=== PATIENT | female | born 1930 | race Caucasian/White ===

== ENCOUNTER 2017-05-08 21:01 | Emergency (ER) | payer MEDICARE ==
[2017-05-08 21:21] VITALS: RESP 18
[2017-05-08 21:52] LABS: Basophils % (A) 0 %; Eosinophils # (A) 0.1 k/uL (0-0.7); Eosinophils % (A) 1 %; HCT 40.6 % (34.0-46.0); HGB 13.6 gm/dL (11.4-16.0); Lymphocytes % (A) 18 %; MCH 28.7 pg (25.0-35.0); MCHC 33.6 g/dL (31.0-37.0); MCV 85.3 fL (80.0-100.0); Mean Platelet Volume 7.6; Monocytes # (A) 0.4 k/uL (0-1.0); Monocytes % (A) 7 %; Neutrophils # (A) 4.1 k/uL (1.3-7.7); Neutrophils % (A) 73 %; Platelet Count 170 k/uL (150-450); RBC 4.76 m/uL (3.80-5.40); RDW 12.3 % (11.5-15.5); WBC 5.7 k/uL (3.8-10.6)
--- NOTE | 2017-05-08 21:59 | XR ---
EXAMINATION TYPE: XR chest 2V DATE OF EXAM: 05/08/2017 COMPARISON: 12/13/2015 HISTORY: Cough TECHNIQUE: Frontal and lateral views of the chest are obtained. FINDINGS: There is no heart failure nor confluent pneumonic infiltrate. Thoracic aorta is atheromato us. There are chest leads. Costophrenic angles are clear. The bony thorax is intact. IMPRESSION: No active cardiopulmonary disease. Atheromatous aorta. No change.
[2017-05-08 22:02] LABS: INR 1.1 (<1.2); Prothrombin Time 10.8 sec (9.0-12.0)
[2017-05-08 22:24] LABS: ALT 41 U/L (9-52); AST 54 U/L (14-36); Alkaline Phosphatase 72 U/L (38-126); Anion Gap 10 mmol/L; Blood Urea Nitrogen 17 mg/dL (7-17); Calcium 9.1 mg/dL (8.4-10.2); Carbon Dioxide 24 mmol/L (22-30); Chloride 104 mmol/L (98-107); Glucose 127 mg/dL (74-99); Potassium 3.9 mmol/L (3.5-5.1); Sodium 138 mmol/L (137-145); Total Bilirubin 0.8 mg/dL (0.2-1.3); Total Protein 6.6 g/dL (6.3-8.2)
[2017-05-08] MEDS ORDERED: LORazepam 2 MG/ML INJ IV STA (22:36)
[2017-05-08] MEDS ORDERED: ONDANSETRON 4 MG/2 ML VIAL IVP STA (22:36)
[2017-05-08 22:59] LABS: Creatine Kinase 55 U/L (30-135)
[2017-05-08 23:12] LABS: Creatine Kinase MB 0.5 ng/mL (0.0-2.4); Troponin I <0.012 ng/mL (0.000-0.034)
--- NOTE | 2017-05-08 23:14 | ED ---
General Adult HPI - General Chief complaint: Chest Pain Stated complaint: Weakness/Tremors Time Seen by Provider: 05/08/17 21:12 Source: patient, RN notes reviewed, old records reviewed Mode of arrival: EMS Limitations: no limitations - History of Present Illness Initial comments: 89-year-old female to the ER with multiple nonspecific complaints. Patient complaints of lightheadedness and dizziness and mild trembling. She has multiple medical issues including cardiac disease. Also source of high blood pressure high cholesterol. Patient having mild chest pain. Patient states she was doing nothing abnormal watching TV with no symptoms or complaints. Blood pressure began to fluctuate a little bit, she felt dizzy and had some tingling in her arms. At this time states some tingling in her right arm, some nausea, denies chest pain or any pain in general. Recent fever cough or congestion, patient states she's been feeling well as of late - Related Data Home Medications Medication Instructions Recorded Confirmed ALPRAZolam [Xanax] 0.5 mg PO HS PRN 03/04/15 05/08/17 Aspirin 162 mg PO HS 03/04/15 05/08/17 Hydrocodone/Acetaminophen [Lortab 1 tab PO Q6HR PRN 03/04/15 05/08/17 7.5-325 mg Tablet] Isosorbide Mononitrate ER [Imdur] 30 mg PO BID 03/04/15 05/08/17 Metoprolol Tartrate [Lopressor] 50 mg PO BID 03/04/15 05/08/17 Omeprazole [PriLOSEC] 20 mg PO AC-BRKFST 03/04/15 05/08/17 Rosuvastatin Calcium [Crestor] 5 mg PO QAM 03/04/15 05/08/17 amLODIPine [Norvasc] 5 mg PO BID 03/04/15 05/08/17 Cholecalciferol [Vitamin D3] 2,000 unit PO HS 11/09/15 05/08/17 Levothyroxine Sodium [Synthroid] 137 mcg PO MOTUWETHFRSA 12/13/15 05/08/17 Valsartan [Diovan] 160 mg PO BID 12/13/15 05/08/17 FLUoxetine HCL [PROzac] 10 mg PO DAILY 05/08/17 05/08/17 Allergies Allergy/AdvReac Type Severity Reaction Status Date / Time dog dander Allergy Unknown Verified 05/08/17 21:28 Penicillins Allergy Unknown Verified 05/08/17 21:28 Review of Systems ROS Statement: Those systems with pertinent positive or pertinent negative responses have been documented in the HPI. ROS Other: All systems not noted in ROS Statement are negative. Past Medical History Past Medical History: Coronary Artery Disease (CAD), GERD/Reflux, Hyperlipidemia , Hypertension, Myocardial Infarction (OK), Osteoarthritis (OA), Thyroid Disorder Additional Past Medical History / Comment(s): glaucoma, hernia, hypercholetremia , diverticulousis, back pain, CAD status post PCI, hypertension and hypertensive cardiovascular disease, osteoarthritis, recurrent TIA. Last Myocardial Infarction Date:: History of Any Multi-Drug Resistant Organisms: None Reported Past Surgical History: Back Surgery, Bladder Surgery, Hysterectomy, Orthopedic Surgery Additional Past Surgical History / Comment(s): Left heart catheterization with PCI 3, bilateral cataract surgery, right glaucoma surgery, bladder suspension 2, initial partial hysterectomy, followed by oophorectomy with salpingectomy, then the rest of salpingectomy and oophorectomy, colonoscopy 5 years ago showed diverticulosis, Past Anesthesia/Blood Transfusion Reactions: No Reported Reaction Past Psychological History: Anxiety Smoking Status: Never smoker Past Alcohol Use History: None Reported Past Drug Use History: None Reported - Past Family History Father Family Medical History: No Reported History (Father at age of 71 from alcohol was in) Mother Family Medical History: Vascular Disorder (Mother at age of 84 from old age after she had suffered from competition after carotid endarterectomy.) Son(s) Family Medical History: No Reported History (Patient has one son no major medical problems) General Exam Limitations: no limitations General appearance: alert, in no apparent distress Head exam: Present: atraumatic, normocephalic, normal inspection Eye exam: Present: normal appearance, PERRL, EOMI. Absent: scleral icterus, conjunctival injection, periorbital swelling ENT exam: Present: normal exam, mucous membranes moist Neck exam: Present: normal inspection. Absent: tenderness, meningismus, lymphadenopathy Respiratory exam: Present: normal lung sounds bilaterally. Absent: respiratory distress, wheezes, rales, rhonchi, stridor Cardiovascular Exam: Present: regular rate, normal rhythm, normal heart sounds. Absent: systolic murmur, diastolic murmur, rubs, gallop, clicks GI/Abdominal exam: Present: soft, normal bowel sounds. Absent: distended, tenderness, guarding, rebound, rigid Extremities exam: Present: normal inspection, full ROM, normal capillary refill. Absent: tenderness, pedal edema, joint swelling, calf tenderness Back exam: Present: normal inspection Neurological exam: Present: alert, oriented X3, CN II-XII intact Psychiatric exam: Present: normal affect, normal mood Skin exam: Present: warm, dry, intact, normal color. Absent: rash Course Vital Signs 05/08/17 05/08/17 21:16 22:49 Temperature 98.5 F Pulse Rate 64 80 Respiratory 18 18 Rate Blood Pressure 157/73 129/66 O2 Sat by Pulse 97 95 Oximetry - Reevaluation(s) Reevaluation #1: 05/08/17 23:14 Medical records reviewed Reevaluation #2: 05/08/17 23:14 Patient's nausea is improved Reevaluation #3: 05/09/17 00:11 Patient still denies any complaints like to be discharged home EKG Findings - EKG Comments: EKG Findings:: EKG shows normal sinus rhythm rate of 63, DE 140, QRS 92, QTc 411 Medical Decision Making - Medical Decision Making 86 female the ER nonspecific symptoms, patient feeling better, history of similar ER visits for same. No chest pain feeling good and would like to be discharged home - Lab Data Result diagrams: 05/08/17 21:15 05/08/17 21:15 Lab Results 05/08/17 05/08/17 05/08/17 Range/Units 21:15 21:15 21:15 WBC 5.7 (3.8-10.6) k/uL RBC 4.76 (3.80-5.40) m/uL Hgb 13.6 (11.4-16.0) gm/dL Hct 40.6 (34.0-46.0) % MCV 85.3 (80.0-100.0) fL MCH 28.7 (25.0-35.0) pg MCHC 33.6 (31.0-37.0) g/dL RDW 12.3 (11.5-15.5) % Plt Count 170 (150-450) k/uL Neutrophils % 73 % Lymphocytes % 18 % Monocytes % 7 % Eosinophils % 1 % Basophils % 0 % Neutrophils # 4.1 (1.3-7.7) k/uL Lymphocytes # 1.0 (1.0-4.8) k/uL Monocytes # 0.4 (0-1.0) k/uL Eosinophils # 0.1 (0-0.7) k/uL Basophils # 0.0 (0-0.2) k/uL PT (9.0-12.0) sec INR (<1.2) APTT (22.0-30.0) sec Sodium 138 (137-145) mmol/L Potassium 3.9 (3.5-5.1) mmol/L Chloride 104 (98-107) mmol/L Carbon Dioxide 24 (22-30) mmol/L Anion Gap 10 mmol/L BUN 17 (7-17) mg/dL Creatinine 0.60 (0.52-1.04) mg/dL Est GFR (CKD-EPI)AfAm >90 (>60 ml/min/1.73 sqM) Est GFR (CKD-EPI)NonAf 82 (>60 ml/min/1.73 sqM) Glucose 127 H (74-99) mg/dL Calcium 9.1 (8.4-10.2) mg/dL Magnesium 2.0 (1.6-2.3) mg/dL Total Bilirubin 0.8 (0.2-1.3) mg/dL AST 54 H (14-36) U/L ALT 41 (9-52) U/L Alkaline Phosphatase 72 (38-126) U/L Total Creatine Kinase 55 (30-135) U/L CK-MB (CK-2) 0.5 (0.0-2.4) ng/mL CK-MB (CK-2) Rel Index 0.9 Troponin I <0.012 (0.000-0.034) ng/mL Total Protein 6.6 (6.3-8.2) g/dL Albumin 4.0 (3.5-5.0) g/dL 05/08/17 Range/Units 21:15 WBC (3.8-10.6) k/uL RBC (3.80-5.40) m/uL Hgb (11.4-16.0) gm/dL Hct (34.0-46.0) % MCV (80.0-100.0) fL MCH (25.0-35.0) pg MCHC (31.0-37.0) g/dL RDW (11.5-15.5) % Plt Count (150-450) k/uL Neutrophils % % Lymphocytes % % Monocytes % % Eosinophils % % Basophils % % Neutrophils # (1.3-7.7) k/uL Lymphocytes # (1.0-4.8) k/uL Monocytes # (0-1.0) k/uL Eosinophils # (0-0.7) k/uL Basophils # (0-0.2) k/uL PT 10.8 (9.0-12.0) sec INR 1.1 (<1.2) APTT 22.0 (22.0-30.0) sec Sodium (137-145) mmol/L Potassium (3.5-5.1) mmol/L Chloride (98-107) mmol/L Carbon Dioxide (22-30) mmol/L Anion Gap mmol/L BUN (7-17) mg/dL Creatinine (0.52-1.04) mg/dL Est GFR (CKD-EPI)AfAm (>60 ml/min/1.73 sqM) Est GFR (CKD-EPI)NonAf (>60 ml/min/1.73 sqM) Glucose (74-99) mg/dL Calcium (8.4-10.2) mg/dL Magnesium (1.6-2.3) mg/dL Total Bilirubin (0.2-1.3) mg/dL AST (14-36) U/L ALT (9-52) U/L Alkaline Phosphatase (38-126) U/L Total Creatine Kinase (30-135) U/L CK-MB (CK-2) (0.0-2.4) ng/mL CK-MB (CK-2) Rel Index Troponin I (0.000-0.034) ng/mL Total Protein (6.3-8.2) g/dL Albumin (3.5-5.0) g/dL - Radiology Data Radiology results: report reviewed (Chest x-rays negative for acute disease), image reviewed Disposition Clinical Impression: Chest pain, Anxiety, Hypertension Disposition: HOME SELF-CARE Condition: Good Instructions: Chest Pain (ED), Hypertension (ED) Referrals: Hanna Bajwa MD [Primary Care Provider] - 1-2 days
[2017-05-09 00:22] VITALS: BP 108/76; PULSE 72; TEMP 98.3
== END 2017-05-09 00:24 | disposition home or self-care (01) ==
LOC: EC 21:01
DX: F41.9 Anxiety disorder, unspecified (principal); R07.9 Chest pain, unspecified; I11.9 Hypertensive heart disease without heart failure; R11.0 Nausea; E78.5 Hyperlipidemia, unspecified; I25.10 Atherosclerotic heart disease of native coronary artery without angina pectoris; K21.9 Gastro-esophageal reflux disease without esophagitis; I25.2 Old myocardial infarction; E78.00 Pure hypercholesterolemia, unspecified; E07.9 Disorder of thyroid, unspecified; Z86.73 Personal history of transient ischemic attack (TIA), and cerebral infarction without residual deficits; Z79.82 Long term (current) use of aspirin; Z79.899 Other long term (current) drug therapy; Z91.048 Other nonmedicinal substance allergy status; Z88.0 Allergy status to penicillin
CPT/HCPCS: 36415; 93005; 80053; 82550; 82553; 83735; 84484; 85025; 85610; 85730; 71046; 99285; 96374; 96375; J2060; J2405

== ENCOUNTER → 2017-07-17 | Outpatient (CLI) | payer MEDICARE ==
--- NOTE | 2017-07-20 08:39 | USB ---
Reason for exam: clinical finding. History: Patient is postmenopausal. Physical Findings: Nurse did not find any significant physical abnormalities on exam. US Breast LT Left complete breast ultrasound includes all four quadrants, the retroareolar region and axilla. Finding demonstrates no cystic or solid lesion seen. These results were verbally communicated with the patient and result sheet given to the patient on 07/17/17. ASSESSMENT: Incomplete: need additional imaging evaluation, BI-RAD 0 RECOMMENDATION: Special view mammogram of the left breast. (spot MLO and lateral)
--- NOTE | 2017-07-20 08:41 | MM ---
Reason for exam: additional evaluation requested from abnormal screening. Last mammogram was performed 17 years and 2 months ago. History: Patient is postmenopausal. Physical Findings: Nurse did not find any significant physical abnormalities on exam. MG Work Up Mamm w CAD LT LM and spot compression MLO view(s) were taken of the left breast. Prior study comparison: June 26, 2017, mammogram, performed at [facility]. August 08, 2008, mammogram, performed at [facility]. The breast tissue is heterogeneously dense. This may lower the sensitivity of mammography. No suspicious abnormality. Inferior retroareolar asymmetry is present on the exam on 2008. These results were verbally communicated with the patient and result sheet given to the patient on 07/17/17. ASSESSMENT: Benign, BI-RAD 2 RECOMMENDATION: Routine screening mammogram of both breasts in 1 year.
== END | disposition home or self-care (01) ==
LOC: RADUSWWP 14:03
PROVIDERS: ATTEND Internal Medicine
DX: R92.2 Inconclusive mammogram (principal)
CPT/HCPCS: 77065

== ENCOUNTER → 2018-01-26 | Outpatient (CLI) | payer MEDICARE ==
--- NOTE | 2018-01-26 16:19 | US ---
EXAMINATION TYPE: US carotid duplex BILAT DATE OF EXAM: 01/26/2018 COMPARISON: MRA head/ MRI brain, US CLINICAL HISTORY: I65.23 stenosis/occlusion carotid. TIA EXAM MEASUREMENTS: RIGHT: Peak Systolic Velocity (PSV) cm/sec ----- Right CCA: 57.9 ----- Right ICA: 62.3 ----- Right ECA: 188.3 prox ICA/CCA ratio: 1.1 RIGHT: End Diastole cm/sec ----- Right CCA: 13.9 ----- Right ICA: 17.2 ----- Right ECA: 13.1 LEFT: Peak Systolic Velocity (PSV) cm/sec ----- Left CCA: 49.1 ----- Left ICA: 45.9 ----- Left ECA: 156.2 mid ICA/CCA ratio: 0.9 LEFT: End Diastole cm/sec ----- Left CCA: 10.1 ----- Left ICA: 15.4 ----- Left ECA: 10.7 VERTEBRALS (direction of flow): Right Vertebral: no color flow seen in neck area for PW Doppler placement Left Vertebral: Antegrade and enlarged vertebral artery with color flow well seen Rhythm: Normal Moderate, irregular and calcified wall plaque is seen in bilateral carotid bifurcation with abnormall y elevated PSV in bilateral ECA at and distal to noted wall plaque. Dominant left vertebral artery is also noted. IMPRESSION: 1. 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 2. Significant flow-limiting stenosis within the internal carotid arteries is not identified. 3. There is some mild intimal common carotid vessels. 4. Nonvisualization right vertebral artery Criteria for Assigning % of Stenosis / Diameter reduction (Estimation based on the indirect measurements of the internal carotid artery velocities (ICA PSV). 1. Normal (no stenosis)=ICA PSV < 125 cm/s: ratio < 2.0: ICA EDV<40 cm/s. 2. Less than 50% stenosis=ICA PSV < 125 cm/s: ratio < 2.0: ICA EDV<40 cm/s. 3. 50 to 69% stenosis=ICA PSV of 125 to 230 cm/s: ration 2.0 ? 4.0: ICA EDV 40-100 cm/s. 4. Greater than 70% stenosis to near occlusion= ICA PSV > 230 cm/s: ratio > 4.0: ICA EDV > 100 cm/s. 5. Near occlusion= ICA PSV velocities may be low or undetectable: variable ratio and ICA EDV. 6. Total occlusion=unable to detect flow.
--- NOTE | 2018-01-27 07:30 | ECHOF ---
Referral Reason:Atherosclerotic heart disease MEASUREMENTS -------- HEIGHT: 162.6 cm WEIGHT: 86.6 kg BP: 126/69 RVIDd: 3.3 cm (< 3.3) IVSd: 1.2 cm (0.6 - 1.1) LVIDd: 4.3 cm (3.9 - 5.3) LVPWd: 1.2 cm (0.6 - 1.1) IVSs: 1.6 cm LVIDs: 3.2 cm LVPWs: 1.4 cm LA Diam: 3.5 cm (2.7 - 3.8) LAESV Index (A-L): 35.47 ml/m Ao Diam: 3.3 cm (2.0 - 3.7) AV Cusp: 2.2 cm (1.5 - 2.6) MV EXCURSION: 19.089 mm (> 18.000) MV EF SLOPE: 36 mm/s (70 - 150) EPSS: 1.0 cm MV E Thomas: 0.91 m/s MV DecT: 245 ms MV A Thomas: 0.83 m/s MV E/A Ratio: 1.10 AR PHT: 955 ms RAP: 5.00 mmHg RVSP: 33.70 mmHg FINDINGS -------- Sinus rhythm. This was a technically adequate study. The left ventricular size is normal. There is borderline concentric left ventricular hypertrophy. Overall left ventricular systolic function is normal with, an EF between 55 - 60 %. The right ventricle is mildly enlarged. LA is moderately dilated 34-39 ml/m2 The right atrium is normal in size. There is mild aortic valve sclerosis. There is mild aortic regurgitation. The mitral valve is normal. Mild mitral regurgitation is present. Mild tricuspid regurgitation present. Right ventricular systolic pressure is normal at < 35 mmHg. Trace/mild (physiologic) pulmonic regurgitation. The aortic root size is normal. Normal inferior vena cava with normal inspiratory collapse consistent with estimated right atrial pre ssure of 5 mmHg. There is no pericardial effusion. CONCLUSIONS -------- 1. Sinus rhythm. 2. This was a technically adequate study. 3. The left ventricular size is normal. 4. There is borderline concentric left ventricular hypertrophy. 5. Overall left ventricular systolic function is normal with, an EF between 55 - 60 %. 6. The right ventricle is mildly enlarged. 7. LA is moderately dilated 34-39 ml/m2 8. There is mild aortic valve sclerosis. 9. There is mild aortic regurgitation. 10. Mild mitral regurgitation is present. 11. Mild tricuspid regurgitation present. 12. Right ventricular systolic pressure is normal at < 35 mmHg. 13. Trace/mild (physiologic) pulmonic regurgitation. 14. The aortic root size is normal. 15. Normal inferior vena cava with normal inspiratory collapse consistent with estimated right atrial pressure of 5 mmHg. 16. There is no pericardial effusion. NEWS LIBRARY DIRECTOR: Justine Bryant RDCS
== END ==
LOC: RADUSMAIN 14:44
PROVIDERS: ATTEND Internal Medicine
DX: I65.23 Occlusion and stenosis of bilateral carotid arteries (principal)
CPT/HCPCS: 93306; 93880

== ENCOUNTER → 2019-02-15 | Outpatient (CLI) | payer MEDICARE ==
--- NOTE | 2019-02-16 12:02 | ECHOF ---
Referral Reason:I25.10 Atherosclerotic heart disease of [place] MEASUREMENTS -------- HEIGHT: 165.1 cm WEIGHT: 88.9 kg BP: RVIDd: 3.5 cm (< 3.3) IVSd: 1.1 cm (0.6 - 1.1) LVIDd: 4.5 cm (3.9 - 5.3) LVPWd: 1.1 cm (0.6 - 1.1) IVSs: 1.6 cm LVIDs: 3.1 cm LVPWs: 1.4 cm LA Diam: 4.1 cm (2.7 - 3.8) LAESV Index (A-L): 27.65 ml/m Ao Diam: 2.9 cm (2.0 - 3.7) AV Cusp: 1.4 cm (1.5 - 2.6) LA Diam: 3.6 cm (2.7 - 3.8) MV EXCURSION: 16.659 mm (> 18.000) MV EF SLOPE: 71 mm/s (70 - 150) EPSS: 0.6 cm MV E Thomas: 0.57 m/s MV DecT: 192 ms MV A Thomas: 0.36 m/s MV E/A Ratio: 1.57 RAP: 5.00 mmHg RVSP: 25.10 mmHg FINDINGS -------- Sinus rhythm. This was a technically good study. LV size, wall thickness and systolic function are normal, with an EF greater than 55%. The left lakhwinder tricular size is normal. Overall left ventricular systolic function is mildly impaired with, an EF between 45 - 50 %. The right ventricle is normal in size. The left atrial size is normal. The right atrial size is normal. There is mild aortic valve sclerosis. There is no evidence of aortic regurgitation. Mild mitral annular calcification present. Mild mitral regurgitation is present. Mild tricuspid regurgitation present. Right ventricular systolic pressure is normal at < 35 mmHg. There is no evidence of pulmonary hypertension. There is no pulmonic regurgitation present. The aortic root size is normal. There is no pericardial effusion. CONCLUSIONS -------- 1. Sinus rhythm. 2. This was a technically good study. 3. LV size, wall thickness and systolic function are normal, with an EF greater than 55%. 4. The left ventricular size is normal. 5. Overall left ventricular systolic function is mildly impaired with, an EF between 45 - 50 %. 6. The right ventricle is normal in size. 7. The left atrial size is normal. 8. The right atrial size is normal. 9. There is mild aortic valve sclerosis. 10. Mild mitral annular calcification present. 11. Mild mitral regurgitation is present. 12. Mild tricuspid regurgitation present. 13. Right ventricular systolic pressure is normal at < 35 mmHg. 14. There is no evidence of pulmonary hypertension. 15. There is no pulmonic regurgitation present. 16. The aortic root size is normal. 17. There is no pericardial effusion. SLEEVE TURNER: Jessie Arzate RDCS
== END | disposition home or self-care (01) ==
LOC: RADECHMAIN 13:07
PROVIDERS: ATTEND Internal Medicine
DX: I08.1 Rheumatic disorders of both mitral and tricuspid valves (principal)
CPT/HCPCS: 93306

== ENCOUNTER → 2019-02-25 | Outpatient (CLI) | payer MEDICARE ==
[~2019-02-25] MED LIST: REGADENOSON 0.4 MG/5 ML SYRINGE IV ONE
--- NOTE | 2019-02-25 12:51 | NM ---
EXAMINATION TYPE: NM stress lexiscan cardiolite DATE OF EXAM: 02/25/2019 COMPARISON: NONE HISTORY: History of hypertension and hypercholesterolemia with prior TIA, prior catheterization with 3 vessel angioplasty presents with abnormal EKG TECHNIQUE: After the intravenous administration of 10.39 mCi Tc 99m Sestamibi - Cardiolite resting S PECT images acquired 45 minutes post injection. The patient received 0.4mg Lexiscan, 26.2 mCi Tc 99m Sestamibi - Stress images obtained [address] injection FINDINGS: Review of stress and rest SPECT images demonstrates no distinct perfusion abnormality. Gated analysi s shows normal wall motion with an estimated left ventricular ejection fraction of 51 %. IMPRESSION: No scintigraphic evidence for reversible ischemia.
--- NOTE | 2019-02-25 20:47 | EST ---
EXERCISE STRESS AGE: 88 SEX: Female HT: 65" WT: 195 PROTOCOL: Lexiscan/Cardiolite STAGE: DURATION OF EXERCISE: HEART RATE REST: 67 BLOOD PRESSURE REST: 136/84 MAXIMUM HEART RATE ACHIEVED: 87 MAXIMUM BLOOD PRESSURE: 137/81 85% MPHR: 111 100% MPHR: 131 METS: INDICATIONS: Abnormal EKG. CLINICAL INFORMATION: Baseline rhythm is a sinus mechanism, rate of 67, normal axis and intervals. T-wave inversion in the anterolateral leads. Poor R-wave progression. Baseline blood pressure 136/84. The patient received injection of Lexiscan. Electrocardiograph monitoring revealed no evidence of diagnostic ischemic ST deviation. Cardiolite was injected per protocol. CONCLUSION: 1. Nondiagnostic electrocardiograph stress testing. 2. Nuclear images will be reported separately. MMODL / IJN: [id number] /
== END | disposition home or self-care (01) ==
LOC: RADNMMAIN 08:40
PROVIDERS: ATTEND Internal Medicine
DX: I25.10 Atherosclerotic heart disease of native coronary artery without angina pectoris (principal)
CPT/HCPCS: 93017; 78452; A9500; J2785